=== PATIENT | male | born 1995 | race Caucasian/White ===

== ENCOUNTER 2017-11-11 03:37 | Emergency (ER) | payer OTHER ==
--- NOTE | 2017-11-11 04:30 | EDPHY ---
H & P Stated Complaint: SOB x 4 years, numbness in fingers starting tonight. Time Seen by Provider: 11/11/17 04:05 HPI/ROS: Chief Complaint: Shortness of breath HPI: 22-year-old male presenting with shortness of breath that he gets primarily at night when he is going to bed. Patient states has been going on for several years but has been worse in the last several months. Tonight when he was trying to go out of bed he felt he could not take a full complete deep breath. He also noticed some tingling in his fingers which was new and is presenting for evaluation. He has never seen a physician for this. Patient has noted that this does seem worse at times of stress. He does smoke cigarettes. He has not have any dyspnea on exertion. No cough. No fevers or chills. He does play soccer and does not get abnormally short of breath while exercising. 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 He also states that he occasionally takes Adderall to help him study. He drinks occasional alcohol occasional marijuana. He also drinks at least 4 or more caffeinated beverages a day, the last is at about 10 o'clock at night. Does feel somewhat anxious but has never been diagnosed with an anxiety problem in the past. ROS: 10 point Review of Systems is negative except as noted in the HPI. PMH: Denies Social History: Positive smoking, occasional alcohol, occasional marijuana Family History: non-contributory Physical Exam: Gen: Awake, Alert, No Distress HEENT: Nose: no rhinorrhea Eyes: PERRLA, EOMI Mouth: Moist mucosa Neck: Supple, no JVD Chest: nontender, lungs clear to auscultation Heart: S1, S2 normal, no murmur Abd: Soft, non-tender, no guarding Back: no CVA tenderness, no midline tenderness Ext: no edema, non-tender Skin: no rash Neuro: CN II-XII intact, Sensation grossly intact, Strength 5/5 in bilateral upper and lower extremities - Personal History Current Tetanus/Diphtheria Vaccine: Yes Current Tetanus Diphtheria and Acellular Pertussis (TDAP): Yes Tetanus Vaccine Date: [employer] student - Medical/Surgical History Hx Asthma: No Hx Chronic Respiratory Disease: No Hx Diabetes: No Hx Cardiac Disease: No Hx Renal Disease: No Hx Cirrhosis: No Hx Alcoholism: No Hx HIV/AIDS: No Hx Splenectomy or Spleen Trauma: No Other PMH: psh-appy. - Social History Smoking Status: Heavy smoker Constitutional: Initial Vital Signs Temperature (C) 36.9 C 11/11/17 03:41 Heart Rate 130 H 11/11/17 03:41 Respiratory Rate 18 11/11/17 03:41 Blood Pressure 136/117 H 11/11/17 03:41 O2 Sat (%) 94 11/11/17 03:41 O2 Delivery Mode Room Air Allergies/Adverse Reactions: No Known Allergies Allergy (Unverified 04/05/15 02:47) Home Medications: Medication Instructions Recorded NK [No Known Home Meds] 04/05/15 Medical Decision Making ED Course/Re-evaluation: 22-year-old male presenting with symptoms consistent with anxiety. He is getting episodes of shortness of breath when he is lying down to go to sleep at night. Otherwise he is able to tolerate exercise. His lung exam is unremarkable. I have counseled him extensively about smoking cessation. This includes changing his behaviors associated with smoking to increase his likelihood of success. I have also recommended that he discontinue using Adderall as a study 8. I have also advised that he not drink any caffeinated beverages after 6:00 p.m.. He can take Benadryl at night as a sleep aid. He will follow up with [facility] for further evaluation. No evidence of acute cardiopulmonary process at this time. Departure - Departure Disposition: Home, Routine, Self-Care Clinical Impression: Anxiety reaction Condition: Good Instructions: Anxiety (ED) Additional Instructions: Please try to quit smoking. Is important to change or daily behaviors associated with smoking in order to be successful. Follow up with [facility] for resources to help you stop smoking. Please stop using Adderall as a study aid as I believe this is contributing to your symptoms. Do not drink any caffeinated beverages after 6:00 p.m.. If you're having trouble sleeping at night you may take 125 mg Benadryl before going to bed. Follow up with [facility] in 3-4 days for further assistance with your symptoms and smoking cessation. Referrals: JAMES SANTOS ,. [Clinic] - As per Instructions
[2017-11-11 04:37] VITALS: BP 132/97
== END 2017-11-11 04:39 | disposition home or self-care (01) ==
DX: F41.1 Generalized anxiety disorder (principal); F17.200 Nicotine dependence, unspecified, uncomplicated

== ENCOUNTER 2018-09-19 23:20 | Emergency (ER) | payer OTHER ==
[2018-09-19 23:26] VITALS: BP 131/86
--- NOTE | 2018-09-19 23:46 | EDPHY ---
H & P Stated Complaint: cough, sore throat, sinus drainage x2 days Time Seen by Provider: 09/19/18 23:32 HPI/ROS: Chief Complaint: Cough, sore throat, congestion HPI: 23-year-old healthy fully immunized male presenting with 2 days of runny nose, cough, congestion. No fevers or chills. No nausea or vomiting. No abdominal pain. No body aches. He has not taken any medication. Cough is nonproductive. No difficulty breathing. No chest pain. ROS: 10 systems were reviewed and were negative except those elements noted in the HPI. PMH: Appendectomy Social History: No smoking Family History: non-contributory Physical Exam: Gen: Awake, Alert, No Distress HEENT: Ears: Normal Nose: no rhinorrhea Eyes: PERRLA, EOMI Mouth: Moist mucosa oropharynx is normal Neck: Supple, no JVD Chest: nontender, lungs clear to auscultation Heart: S1, S2 normal, no murmur Abd: Soft, non-tender, no guarding Back: no CVA tenderness, no midline tenderness Ext: no edema, non-tender Skin: no rash Neuro: CN II-XII intact, Sensation grossly intact, Strength 5/5 in bilateral upper and lower extremities - Personal History Current Tetanus/Diphtheria Vaccine: Yes Current Tetanus Diphtheria and Acellular Pertussis (TDAP): Yes Tetanus Vaccine Date: - Medical/Surgical History Hx Asthma: No Hx Chronic Respiratory Disease: No Hx Diabetes: No Hx Cardiac Disease: No Hx Renal Disease: No Hx Cirrhosis: No Hx Alcoholism: No Hx HIV/AIDS: No Hx Splenectomy or Spleen Trauma: No Other PMH: psh-appy. - Social History Smoking Status: Heavy smoker Constitutional: Initial Vital Signs Temperature (C) 37.4 C 09/19/18 23:22 Heart Rate 104 H 09/19/18 23:22 Respiratory Rate 20 09/19/18 23:22 Blood Pressure 131/86 H 09/19/18 23:22 O2 Sat (%) 97 09/19/18 23:22 O2 Delivery Mode Room Air Allergies/Adverse Reactions: No Known Allergies Allergy (Unverified 09/19/18 23:22) Home Medications: Medication Instructions Recorded NK [No Known Home Meds] 04/05/15 Medical Decision Making ED Course/Re-evaluation: 23-year-old male presenting with viral URI symptoms. Normal exam. Lungs are clear. He is afebrile. Oxygen saturations are normal. Will discharge with ibuprofen acetaminophen up with [facility]. Departure - Departure Disposition: Home, Routine, Self-Care Clinical Impression: Viral URI Condition: Good Instructions: Upper Respiratory Infection (ED) Additional Instructions: Alternate acetaminophen (1000 mg) with ibuprofen (400 mg) every 4 hours as needed for fevers, chills, aches or pain. Follow up with [facility] for any concerns. Referrals: JAMES SANTOS ,. [Clinic] - As per Instructions
== END 2018-09-20 00:02 | disposition home or self-care (01) ==
DX: J06.9 Acute upper respiratory infection, unspecified (principal)

== ENCOUNTER 2018-11-11 15:01 | Emergency (ER) | payer OTHER ==
[2018-11-11] MEDS ORDERED: LET GEL TOPICAL 1 EA SYR TP ONE (15:49)
--- NOTE | 2018-11-11 15:52 | EDPHY ---
General Time Seen by Provider: 11/11/18 15:44 Narrative: CLINICAL IMPRESSION: Left 5th finger fracture with abrasion ASSESSMENT/PLAN: 23-year-old male right-hand dominant, presents to the emergency department with acute left 5th finger pain, swelling and abrasion. Patient fell while intoxicated last night. He has obvious contusion and swelling to the left 5th finger with intact distal neurovascular exam and no open wounds. X-rays confirm a nondisplaced middle phalanx fracture. He was placed in an aluminum finger splint. Wound care was provided. Tetanus reported up-to-date. Orthopedic hand specialist referral given. Warning signs return to ED sooner discussed discharge. DIFFERENTIAL DX: Differential includes but not limited to acute fracture, strain/sprain, joint dislocation, soft tissue contusion ED PROCEDURES: Procedure: Splint placement. A aluminum finger splint was applied to left 5th finger by heavy equipment technician, supervised by myself. After application of the splint I returned and re-examined the patient. The splint was adequately immobilizing the joint and distal to the splint the patient's circulation and sensation was intact. ED COURSE: 3:45 p.m.: Patient seen assessed by myself. Plan for x-rays and wound care. 4:30 P.M. x-ray show a nondisplaced middle phalanx fracture of the left 5th finger. This will be treated with an aluminum finger splint and marine tape. Wound bleed thoroughly cleaned and dressed. CHIEF COMPLAINT: Left 5th finger pain HPI: 23-year-old male, right-hand dominant, presents to the emergency department with acute left 5th finger pain. Patient reports he fell while intoxicated last night and landed on his right hand. He has an abrasion to the 5th finger and pain and bruising with difficulty moving the finger. The remainder of hand and other fingers are without pain. He has superficial abrasions to the forearm. He did not hit his head. His tetanus is up-to-date. No other injuries. PAST MEDICAL HISTORY: None reported Pertinent Past Surgical History: None reported Social History: Otherwise healthy REVIEW OF SYSTEMS: All other systems negative Constitutional: No fever, no chills Musculoskeletal: No deformity, + joint pain Skin: No rashes, positive for color change and open wounds. Neurological: No sensory loss or weakness. PHYSICAL EXAM: General Appearance: Alert, oriented, appropriate for age, cooperative, NAD, well hydrated, non-toxic appearing, tachycardic, no hypoxia. Neurological: Alert and oriented x 3, normal sensation and strength of extremities Skin: Warm, dry, no rashes, no nodules on palpation. Abrasions to left lateral forearm Musculoskeletal: Limited range of motion of left 5th finger secondary to swelling and pain. Superficial abrasion to the lateral aspect of the finger. No suturable laceration. Distal 2 point discrimination intact. No palpable pain along the metacarpals. No wrist pain. MEDICAL DECISION MAKING: Patient was seen independently. Secondary supervising physician at time of evaluation was Dr. Mcwilliams . Diagnosis: Left 5th middle phalanx fracture with superficial abrasions . New, requires workup Summary: See assessment and plan for summary of ED visit Independent visualization of images, tracing, or specimens yes. Patient Progress: Stable for discharge. - History Smoking Status: Heavy smoker - Objective Vital Signs: Initial Vital Signs Temperature (C) 36.4 C 11/11/18 15:06 Heart Rate 112 H 11/11/18 15:06 Respiratory Rate 16 11/11/18 15:06 Blood Pressure 115/78 11/11/18 15:06 O2 Sat (%) 97 11/11/18 15:06 O2 Delivery Mode Room Air Allergies/Adverse Reactions: No Known Allergies Allergy (Verified 11/11/18 15:06) Home Medications: Medication Instructions Recorded NK [No Known Home Meds] 04/05/15 Medications Given: Discontinued Medications Tetracaine/Epinephrine/Lidocaine (Let Gel Topical) 1 ea TP EDNOW ONE Stop: 11/11/18 15:50 Last Admin: 11/11/18 15:53 Dose: 1 ea Departure - Departure Disposition: Home, Routine, Self-Care Clinical Impression: Finger fracture, left Condition: Good Instructions: Finger Fracture (ED) Additional Instructions: DISCHARGE INSTRUCTIONS FROM YOUR DOCTOR Thank you for visiting our emergency department today. You were treated by a physician captain's assistant today and your case was reviewed with our ED Attending physician. Please keep in mind that discharge from the emergency department does not mean that there is nothing wrong - it simply means that we have not identified an emergency condition that requires further evaluation or treatment in the hospital. You should always plan to follow up with primary care for re- evaluation of your condition in the next 2-3 days. If you have been referred to a specialist, please call as soon as possible (today or tomorrow) to schedule your follow up appointment at the appropriate time. ABRASIONS WERE CLEANED AND DRESSED. YOU HAVE A SMALL FRACTURE TO THE MIDDLE PHALANX OF THE LEFT 5TH FINGER. AN ALUMINUM FINGER SPLINT WAS APPLIED AND THE FINGER WAS MARINE-TAPED TO THE 4TH FINGER. ORTHOPEDIC REFERRAL WAS PROVIDED. PLEASE CALL THEM FOR A FOLLOW-UP APPOINTMENT. RETURN TO THE EMERGENCY DEPARTMENT FOR INCREASED PAIN, SWELLING, LOSS OF SENSATION TO THE FINGERS, OR ANY OTHER CONCERNS. People present with illnesses and injuries in different ways, and it is always possible that we have missed something. You may always return for re-evaluation if symptoms worsen or if they are not improving or if you develop new/different symptoms. Again, thank you for choosing our emergency department. We hope that you feel better. Referrals: NONE *PRIMARY CARE P,. [Primary Care Provider] - As per Instructions Pancho Boykin MD [Medical Doctor] - 2-3 days, call for appt.
[2018-11-11 17:04] VITALS: BP 104/78
== END 2018-11-11 17:06 | disposition home or self-care (01) ==
DX: S62.627A Displaced fracture of middle phalanx of left little finger, initial encounter for closed fracture (principal); F10.920 Alcohol use, unspecified with intoxication, uncomplicated; W19.XXXA Unspecified fall, initial encounter; Y92.480 Sidewalk as the place of occurrence of the external cause
CPT/HCPCS: L3925